=== PATIENT | female | born 1985 | race American Indian/Alaskan Native ===

== ENCOUNTER 2020-06-18 16:01 | Emergency (ER) | payer OTHER ==
[2020-06-18 16:58] LABS: Alanine Aminotransferase 9 units/L (7-56); Blood Urea Nitrogen 8 mg/dL (7-17); Calcium 8.3 mg/dL (8.4-10.2); Hemolysis Index 5
[2020-06-18 17:05] LABS: Hemoglobin 6.3 gm/dl (10.1-14.3); Mean Corpuscular HGB Conc 31 % (30-34); Mean Corpuscular Volume 77 fl (79-97); Platelet Count 327 K/mm3 (140-440); Red Blood Count 2.61 M/mm3 (3.65-5.03); Red Cell Distribution Width 17.1 % (13.2-15.2)
[2020-06-18 17:18] LABS: INR 1.07 (0.87-1.13)
--- NOTE | 2020-06-18 17:21 | Ultrasound Report ---
ULTRASOUND PELVIS INDICATION / CLINICAL INFORMATION: two days ago, heavy bleeding/pain. TECHNIQUE: Transabdominal. Duplex Color Doppler used: Yes. COMPARISON: None available FINDINGS: UTERUS: The uterus measures 8.4 x 4.9 x 5.4 cm. The uterus demonstrates a normal sonographic appeara nce. The endometrial stripe measures 0.7 cm, within normal limits. No significant endometrial fluid. No abnormal Doppler flow seen. Nabothian cyst is present within the cervix. RIGHT ADNEXA: No significant ovarian cyst or mass. Normal color Doppler blood flow. LEFT ADNEXA: No significant ovarian cyst or mass. Normal color Doppler blood flow. URINARY BLADDER: No significant abnormality. FREE FLUID: None. ADDITIONAL FINDINGS: None. IMPRESSION: No significant sonographic abnormality of the pelvis. Endometrial stripe is within normal limits. Con tinued clinical follow-up is recommend. Signer Name: Kadeem Posada MD Signed: 06/18/2020 5:17 PM Workstation Name: [id number]
[2020-06-18 17:22] LABS: BUN/Creatinine Ratio 11
[2020-06-18 17:35] LABS: Partial Thromboplastin Time 25.3 Sec. (24.2-36.6)
[2020-06-18] MEDS ORDERED: SODIUM CHLORIDE 0.9% 500 ML 500 ML IV ONE (20:35)
--- NOTE | 2020-06-18 20:38 | Emergency Department Report ---
HPI - General Chief Complaint: Vaginal Bleeding Time Seen by Provider: 06/18/20 20:14 - HPI HPI: This is a 34-year-old -[place] female presents to the emergency department, sent in from the [facility], with a complaint of low hemoglobin after a recent elective and chemical . Patient says that she took the " pill" on May 28. Since that time she has been having some vaginal bleeding and passing tissue. She went for a follow-up today and says that she was supposed to have a second pill but they noticed that she had low hemoglobin and they decided to "suck the rest out." After that procedure EMS was called to bring her to the emergency department. Patient says that the bleeding has slowed up since arrival to the emergency department. She denies any other past medical history. She denies any history of anemia other than requiring a blood transfusion one time in the past for a previous miscarria ge. She denies any headache, fever, chest pain, shortness of breath. ED Past Medical Hx - Past Medical History Previous Medical History?: No - Social History Smoking Status: Never Smoker Substance Use Type: None ED Review of Systems ROS: Stated complaint: LOW H&H Other details as noted in HPI Comment: All other systems reviewed and negative Constitutional: denies: chills, fever Eyes: denies: eye pain, vision change ENT: denies: ear pain, throat pain Respiratory: denies: cough, shortness of breath Cardiovascular: denies: chest pain, palpitations Gastrointestinal: denies: abdominal pain, vomiting Genitourinary: other (Vaginal bleeding). denies: dysuria Musculoskeletal: denies: back pain, arthralgia Skin: denies: rash, lesions Neurological: denies: headache, weakness Physical Exam - Physical Exam Vital Signs: Vital Signs 06/18/20 16:10 Temperature 98.6 F Pulse Rate 104 H Respiratory 18 Rate Blood Pressure 110/69 [Left] O2 Sat by Pulse 100 Oximetry Physical Exam: GENERAL: The patient is well-developed well-nourished. HENT: Normocephalic. Atraumatic. Patient has moist mucous membranes. EYES: Extraocular motions are intact. Pupils equal reactive to light bilaterally. Pale conjunctiva. NECK: Supple. Trachea is midline. CHEST/LUNGS: Clear to auscultation. There is no respiratory distress noted. HEART/CARDIOVASCULAR: Regular. There is no tachycardia. There is no murmur. ABDOMEN: Abdomen is soft, nontender. Patient has normal bowel sounds. There is no abdominal distention. SKIN: Skin is warm and dry. NEURO: The patient is awake, alert, and oriented. The patient is cooperative. The patient has no focal neurologic deficits. Normal speech. Cranial nerves II through XII grossly intact. MUSCULOSKELETAL: There is no tenderness or deformity. There is no limitation range of motion. ED Course Vital Signs 06/18/20 16:10 Temperature 98.6 F Pulse Rate 104 H Respiratory 18 Rate Blood Pressure 110/69 [Left] O2 Sat by Pulse 100 Oximetry ED Medical Decision Making - Lab Data Result diagrams: 06/18/20 16:17 06/18/20 16:17 Lab Results 06/18/20 06/18/20 06/18/20 Range/Units 16:17 16:17 16:17 WBC 11.3 H (4.5-11.0) K/mm3 RBC 2.61 L (3.65-5.03) M/mm3 Hgb 6.3 L (10.1-14.3) gm/dl Hct 20.0 L (30.3-42.9) % MCV 77 L (79-97) fl MCH 24 L (28-32) pg MCHC 31 (30-34) % RDW 17.1 H (13.2-15.2) % Plt Count 327 (140-440) K/mm3 PT 13.8 (12.2-14.9) Sec. INR 1.07 (0.87-1.13) APTT 25.3 (24.2-36.6) Sec. Sodium 134 L (137-145) mmol/L Potassium 4.8 (3.6-5.0) mmol/L Chloride 104.6 (98-107) mmol/L Carbon Dioxide 19 L (22-30) mmol/L Anion Gap 15 mmol/L BUN 8 (7-17) mg/dL Creatinine 0.7 (0.6-1.2) mg/dL Estimated GFR > 60 ml/min BUN/Creatinine Ratio 11 % Glucose 110 H (65-100) mg/dL Calcium 8.3 L (8.4-10.2) mg/dL Total Bilirubin 0.30 (0.1-1.2) mg/dL AST 11 (5-40) units/L ALT 9 (7-56) units/L Alkaline Phosphatase 45 (35-129) units/L Total Protein 7.0 (6.3-8.2) g/dL Albumin 4.0 (3.9-5) g/dL Albumin/Globulin Ratio 1.3 % HCG, Quant (0-4) mIU/mL Blood Type Antibody Screen Crossmatch Ord Rhogam Gestat Weeks WEEKS 06/18/20 06/18/20 06/18/20 Range/Units 16:17 18:04 20:41 WBC (4.5-11.0) K/mm3 RBC (3.65-5.03) M/mm3 Hgb (10.1-14.3) gm/dl Hct (30.3-42.9) % MCV (79-97) fl MCH (28-32) pg MCHC (30-34) % RDW (13.2-15.2) % Plt Count (140-440) K/mm3 PT (12.2-14.9) Sec. INR (0.87-1.13) APTT (24.2-36.6) Sec. Sodium (137-145) mmol/L Potassium (3.6-5.0) mmol/L Chloride (98-107) mmol/L Carbon Dioxide (22-30) mmol/L Anion Gap mmol/L BUN (7-17) mg/dL Creatinine (0.6-1.2) mg/dL Estimated GFR ml/min BUN/Creatinine Ratio % Glucose (65-100) mg/dL Calcium (8.4-10.2) mg/dL Total Bilirubin (0.1-1.2) mg/dL AST (5-40) units/L ALT (7-56) units/L Alkaline Phosphatase (35-129) units/L Total Protein (6.3-8.2) g/dL Albumin (3.9-5) g/dL Albumin/Globulin Ratio % HCG, Quant 38132 H (0-4) mIU/mL Blood Type B POSITIVE B POSITIVE Antibody Screen Negative Crossmatch See Detail Ord Rhogam Gestat Weeks Rh pos WEEKS - Radiology Data Radiology results: report reviewed ULTRASOUND PELVIS INDICATION / CLINICAL INFORMATION: two days ago, heavy bleeding/pain. TECHNIQUE: Transabdominal. Duplex Color Doppler used: Yes. COMPARISON: None available FINDINGS: UTERUS: The uterus measures 8.4 x 4.9 x 5.4 cm. The uterus demonstrates a normal sonographic appearance. The endometrial stripe measures 0.7 cm, within normal limits. No significant endometrial fluid. No abnormal Doppler flow seen. Nabothian cyst is present within the cervix. RIGHT ADNEXA: No significant ovarian cyst or mass. Normal color Doppler blood fl ow. LEFT ADNEXA: No significant ovarian cyst or mass. Normal color Doppler blood flow. URINARY BLADDER: No significant abnormality. FREE FLUID: None. ADDITIONAL FINDINGS: None. IMPRESSION: No significant sonographic abnormality of the pelvis. Endometrial stripe is within normal limits. Continued clinical follow-up is recommend. - Medical Decision Making This patient presents to the emergency department, [facility] in [facility], after she was found to have a hemoglobin of 5.5. This occurs about 2 weeks after taking an pill. The patient was having heavy vaginal bleeding and passing some tissue when she was at the clinic but they did some type of D and E prior to sending her in. At the time of my examination the patient is awake, alert, oriented and does not appear in any respiratory or acute distress. There is no focal, motor or sensory deficits and her cranial nerves are intact. Patient's vital signs are reassuring including being afebrile. Her hemoglobin upon arrival is 6.3. 1 unit of packed red blood cells was ordered for transfusion after a lengthy discussion with the patient. The patient had a blood type of B+ and therefore does not require the RhoGam shot. During her ED course the patient says that the vaginal bleeding has greatly decreased. She had a pelvic ultrasound that shows shows an enlarged endometrial site but there is no evidence of an intrauterine or products of retained conception. The plan last night was for the patient to receive the unit of packed red blood cells for transfusion that would take her from 6.3 up to about a 7.3 hemoglobin. The case was discussed with my colleague, Dr. Iyer, with the plan to recheck her hemoglobin and for discharge home as long as the hemoglobin is above 7. We were on EMR downtime last night and therefore I am unable to see any charting that my colleague may have done, or the results of the repeat hemoglobin. However, I can see that the patient was discharged home and therefore I assume that the hemoglobin was appropriately above 7. I gave the patient written prescriptions for iron supplementation to be taken twice daily. We discussed searching for an iron rich diet. The patient says that she has good outpatient follow-up at both the women's clinic, as well as an [employer] [employer] through [facility] that she previously saw. She will return to the emergency department with any worsening of her symptoms or with any acute distress. Critical Care Time: No Critical care attestation.: If time is entered above; I have spent that time in minutes in the direct care of this critically ill patient, excluding procedure time. ED Disposition Clinical Impression: Vaginal bleeding, Anemia requiring transfusions, Postabortion complication Disposition: DC-01 TO HOME OR SELFCARE Is pt being admited?: No Condition: Stable Referrals: PRIMARY CARE, [Primary Care Provider] - 3-5 Days
[2020-06-19 03:11] VITALS: BP 99/60
== END 2020-06-19 03:12 | disposition home or self-care (01) ==
LOC: ED 16:01
DX: O03.6 Delayed or excessive hemorrhage following complete or unspecified spontaneous abortion (principal); D64.9 Anemia, unspecified
CPT/HCPCS: 36415; 36430; 76856; 80053; 84702; 85027; 85610; 85730; 86850; 86900; 86901; 86920; 96360; 99284; J7040; P9016